=== PATIENT | female | born 1940 | race Caucasian/White ===

== ENCOUNTER 2019-10-30 10:51 | Day surgery (SDC) | payer OTHER ==
[~2019-10-30 10:51] MED LIST: COZAAR25 MG PO; IMODIUM A-D2 M2 PO; LIPITOR20 MG PO; XARELTO20 MG PO; ZANTAC150 M3 PO
[2019-10-30] MEDS ORDERED: PERCOCET 5-3251 EACH PO (16:43)
== END 2019-10-30 17:30 | disposition home or self-care (01) ==
LOC: CIR.AMB 10:51
DX: R15.9 Full incontinence of feces (principal)
CPT/HCPCS: 64581; C1778

== ENCOUNTER 2019-11-13 05:30 | Day surgery (SDC) | payer OTHER ==
[~2019-11-13 05:30] MED LIST changes: +PERCOCET 5-3251 EACH PO
== END 2019-11-13 13:15 | disposition home or self-care (01) ==
LOC: CIR.AMB 05:30
DX: R15.9 Full incontinence of feces (principal)
CPT/HCPCS: 64590; C1767

== ENCOUNTER 2020-10-16 14:54 | Emergency (ER) | payer OTHER ==
[~2020-10-16] VITALS: Ht 152.4 cm; Wt 61.2 kg
== END 2020-10-16 19:25 | disposition home or self-care (01) ==
LOC: ER 14:54
DX: S00.03XA Contusion of scalp, initial encounter (principal); R42 Dizziness and giddiness; W18.09XA Striking against other object with subsequent fall, initial encounter; Y93.89 Activity, other specified; Y92.018 Other place in single-family (private) house as the place of occurrence of the external cause; Y99.8 Other external cause status

== ENCOUNTER → 2022-05-04 | Outpatient (CLI) | payer OTHER | END | disposition home or self-care (01) | LOC: NUCLEAR 12:58 | DX: M81.0 Age-related osteoporosis without current pathological fracture (principal) ==

== ENCOUNTER 2022-05-08 12:28 | Outpatient (CLI) | payer OTHER | END 2022-05-08 14:10 | disposition home or self-care (01) | LOC: MAMO-SONO 12:28 | DX: Z12.31 Encounter for screening mammogram for malignant neoplasm of breast (principal); N64.4 Mastodynia ==